=== PATIENT | female | born 1955 | race Caucasian/White ===

== ENCOUNTER 2017-11-18 18:43 | Emergency (ER) | payer OTHER ==
[2017-11-18] MEDS ORDERED: Labetalol HCl 100 MG/20 ML VIAL ONE (19:34)
--- NOTE | 2017-11-18 19:35 | RAD ---
RIGHT HAND THREE VIEWS: History: Injury. Lump over the second metacarpal head. FINDINGS/IMPRESSION: No acute fracture or dislocation is identified. POS: [facility]
[2017-11-18 19:36] LABS: ALT (SGPT) 27 U/L (8-55); AST (SGOT) 21 U/L (5-34); Albumin 4.4 g/dL (3.5-5.0); Alcohol 33 mg/dL (Less than 10); Alkaline Phosphatase 106 U/L (40-150); Anion Gap 24 mmol/L (10-20); BUN (Urea Nitrogen) 15 mg/dL (9.8-20.1); Bilirubin, Total Less than 0.2 mg/dL (0.2-1.2); Calc. Creatinine Clearance 0 mL/min (70-130); Calcium 10.7 mg/dL (7.8-10.44); Carbon Dioxide 19 mmol/L (22-29); Chloride 95 mmol/L (98-107); Estimated GFR-MDRD 62; Globulin 3.4 g/dL (2.4-3.5); Glucose 290 mg/dL (70-105); Potassium 3.8 mmol/L (3.5-5.1); Protein, Total 7.8 g/dL (6.0-8.3); Sodium 134 mmol/L (136-145)
[2017-11-18 19:38] LABS: CKMB 2.4 ng/mL (0-6.6); Troponin I Less than 0.010 ng/mL (< 0.028)
[2017-11-18 19:39] LABS: Eosinophils 2 % (0-10); Hemoglobin 15.5 g/dL (12.0-16.0); Lymphocytes 22 % (21-51); MDiff Complete? YES; Mean Corpuscular Hemoglobin 34.3 pg (27.0-31.0); Mean Corpuscular Volume 92.9 fl (81.0-99.0); Mean Platelet Volume 8.5 fL (7.4-10.4); Monocytes 4 % (0-10); Neutrophil 70 % (42-75); Platelet Count 268 thou/uL (130-400); RBC Distribution Width 13.3 % (11.5-14.5); Red Blood Cell (RBC) Count 4.51 mill/uL (4.20-5.40); White Blood Cell (WBC) Count 8.4 thou/uL (4.8-10.8)
== END 2017-11-18 19:53 | disposition home or self-care (01) ==
LOC: BURERS 18:43
DX: R55 Syncope and collapse (principal); E11.9 Type 2 diabetes mellitus without complications; F32.9 Major depressive disorder, single episode, unspecified; I10 Essential (primary) hypertension; Z79.899 Other long term (current) drug therapy
CPT/HCPCS: 36416; 80053; 80307; 82553; 84484; 85025; 85379; 93005; 96360